=== PATIENT | male | born 1995 | race Caucasian/White ===

== ENCOUNTER 2023-07-13 23:13 | Emergency (ER) | payer SELFPAY ==
[2023-07-13 23:15] VITALS: BP 147/76; PULSE 108; RESP 16; TEMP 36.8; O2SAT 100; BMI 17.1
--- NOTE | 2023-07-13 23:20 | ECG_ITS ---
APPROVED REPORT Exam: Resting ECG HR:106 bpm ECG Measurements Heart Rate 106 AXES NJ 112 P 76 QRSd 98 QRS 86 QT 311 T 67 QTc 373 Conclusion SINUS TACHYCARDIA WITH SHORT NJ INTERVAL ABNORMAL RHYTHM ECG UNCONFIRMED REPORT Electronically signed by : Ruddy Everett MD 07/14/2023 21:25:37
[2023-07-13 23:34] VITALS: BP 94/38; PULSE 54; RESP 17; O2SAT 100
[2023-07-13 23:35] VITALS: BP 86/41; PULSE 52; RESP 17; O2SAT 100
[2023-07-13 23:37] VITALS: BP 97/46; PULSE 52; RESP 17; O2SAT 100
[2023-07-13 23:39] VITALS: BP 110/79; PULSE 94; RESP 17; O2SAT 100
--- NOTE | 2023-07-13 23:39 | ECG_ITS ---
APPROVED REPORT Exam: Resting ECG HR:76 bpm ECG Measurements Heart Rate 76 AXES QRSd 97 QRS 92 QT 363 T 81 QTc 394 Conclusion ATRIAL FIBRILLATION BORDERLINE RIGHT AXIS DEVIATION [QRS AXIS > 90] ABNORMAL RHYTHM ECG UNCONFIRMED REPORT Electronically signed by : Ruddy Everett MD 07/14/2023 21:25:29
--- NOTE | 2023-07-13 23:41 | XR_ITS ---
PROCEDURE INFORMATION: Exam: XR Chest Exam date and time: 07/14/2023 12:05 AM Age: 27 years old Clinical indication: Sternal or substernal pain; Additional info: Chest pain TECHNIQUE: Imaging protocol: Radiologic exam of the chest. Views: 1 view. COMPARISON: No relevant prior studies available. FINDINGS: Lungs: Unremarkable. No consolidation. Pleural spaces: Unremarkable. No pleural effusion. No pneumothorax. Heart/Mediastinum: Unremarkable. No cardiomegaly. Bones/joints: Unremarkable. IMPRESSION: No acute findings.
[2023-07-13 23:43] VITALS: BP 135/81; PULSE 70; RESP 15; O2SAT 100
--- NOTE | 2023-07-13 23:47 | PC.NURSE ---
Patient called out and reported he felt dizzy. Went in to check on patient patient stated he was seeing stars and felt like he was going to pass out. Patient had an episode of bradycardia and hypotension. Called Phillip JOSEPH and MD to BS. Repeat EKG obtained; V/O for LR per MD. Fluids hung on patient; patient placed in Trendelenburg BP improved as well as HR. Naina STEARNS obtained BS which was 117. Will continue to monitor V/S.
[2023-07-13 23:49] LABS: Basophils # 0.1 K/mm3 (0-0.2); Basophils % 0.5 % (0.1-2.0); Eosinophils # 0.2 K/mm3 (0.0-0.4); Hematocrit 45.7 % (42.0-52.0); Hemoglobin 15.9 g/dL (14.1-18.0); Lymphocytes % 32.5 % (10-50); Mean Corpuscular HGB Conc 34.8 g/dL (31.8-35.4); Mean Corpuscular Volume 91.8 fl (80-94); Mean Platelet Volume 7.4 fl (7.4-10.4); Monocytes # 0.6 K/mm3 (0.1-1.0); Monocytes % 4.6 % (1.7-9.3); Neutrophils # 7.5 K/mm3 (1.8-7.8); Neutrophils % 60.4 % (37.0-80.0); Platelet Count 242 K/mm3 (142-424); Red Blood Count 4.98 M/mm3 (4.60-6.20); Red Cell Distribution Width 12.7 % (11.5-17.5); White Blood Count 12.4 K/mm3 (4.8-10.8)
[2023-07-13 23:55] LABS: POC Glucose,Bedside 117 (70-110)
[2023-07-13 23:57] LABS: Chloride 102 mmol/L (98-107); Potassium 3.5 mmoL/L (3.5-5.1); Sodium 138 mmol/L (136-145)
[2023-07-14] VITALS: BP 132/75; PULSE 68; RESP 17; O2SAT 100
[2023-07-14] LABS: Alanine Aminotransferase 22 U/L (12-78); Albumin Level 5.1 g/dl (3.5-5.0); Albumin/Globulin Ratio 1.7 (1.1-1.8); Alkaline Phosphatase 56 U/L (38-126); Anion Gap 13.5 mEq/L (5-15); Aspartate Amino Transferase 38 U/L (17-59); Blood Urea Nitrogen 21 mg/dl (9-20); Calcium 9.1 mg/dl (8.4-10.2); Carbon Dioxide 26 mmol/L (22.0-30.0); Creatinine Clearance Estimated 83 mL/min (50-200); Estimated Glomerular Filt Rate 79 ml/min (>60); GFR (African American) 96 ML/MIN (>60); Glucose 123 mg/dl (74-100); Total Protein,Serum 8.1 g/dl (6.3-8.2)
[2023-07-14 00:01] LABS: Magnesium 1.8 mg/dl (1.6-2.3)
[2023-07-14 00:13] LABS: Troponin I < 0.01 ng/ml (0.00-0.034)
--- NOTE | 2023-07-14 00:22 | PC.NURSE ---
Handed off report to night baker
--- NOTE | 2023-07-14 00:27 | [facility].EDGENADL ---
Discharge Plan Disposition Patient Disposition: Home, Self-Care Referrals Follow up/Referrals: Provider,Referral, MD [Primary Care Provider] - See instructions Activity Restrictions/Add. Instructions Additional Instructions/Restrictions: Recommend initiating care with a primary care doctor. Please return to the emergency department if you develop any new or worsening symptoms or become concerned for your health. Clinical Impressions Clinical Impression: Vaso vagal episode, Chest pain Discharge ED Provider: Juan M Romano Adult HPI General Chief complaint: Chest Pain Stated complaint: dizziness, chest tightness Time Seen by Provider: 07/13/23 23:22 Mode of Arrival: Ambulatory Source of Information: Patient Limitations: No Limitations Description of Symptoms (Recalled from ER Triage Doc. by RN): Presents to ED with c/o midsternal stabbing chest pain with dizziness while laying down. Patient denies cardiac hx. Patient reports smoking marijuana earlier. History of Present Illness HPI narrative: 27-year-old male, previously healthy, presents with episode of chest pain at home. Happened a little prior to arrival. He reports that it was sharp in nature. He had some associated dizziness. He reports that he has felt some palpitations in the past, but without any regularity. No recent fever or illness. He reports intermittent marijuana use, including earlier today. He denies frequent alcohol use, denies any IV drug use. By the time of presentation patient's chest pain was improved. Related Data Allergies Allergy/AdvReac Type Severity Reaction Status Date / Time No Known Allergies Allergy Unverified 05/29/18 11:37 [facility] Disclaimer: The information contained in this section may have been updated after the patient was seen, as this information can be updated by other users. Social History Smoking Status: Current some day smoker alcohol intake: never current occupational status: employed Travel in the last 8 weeks: None ROS Obtained: Yes All systems reviewed & no additional complaints except as documented Physical Exam General General appearance: alert and in no apparent distress Head Head exam: atraumatic and normocephalic Eye Eye exam: Present normal appearance, PERRL and EOMI ENT ENT exam: Present normal oropharynx and normal external ear exam Neck Neck exam: Present normal inspection and full ROM Chest Chest inspection: Present normal inspection and symmetric chest wall rise; Absent tenderness Respiratory Respiratory exam: Present normal lung sounds bilaterally; Absent respiratory distress Cardiovascular Cardiovascular exam: Present regular rate and normal rhythm Abdominal Exam Abdominal exam: Present soft; Absent distention, tenderness or guarding Extremities Exam Extremities exam: Present normal inspection; Absent edema or joint swelling Back Exam Back exam: Present normal inspection; Absent tenderness Neurological Exam Neurological exam: Present alert and oriented X3; Absent motor sensory deficit Psychiatric Psychiatric exam: Present normal affect and normal mood Skin Skin exam: Present warm, dry and normal color Lymphatic Lymphatic Findings: no adenopathy Medical Decision Making Medical Records Medical records reviewed: Yes I reviewed the patient's medical records. Alex Inquiry Pt receiving controlled substance: No Alex was queried for this patient: No Vital Signs: 07/13/23 23:15 07/13/23 23:34 07/13/23 23:35 Temperature 98.2 F Temperature Source Oral Pulse Rate 54 L 52 L Pulse Rate [Right] 108 H Respiratory Rate 16 17 17 Blood Pressure 94/38 L 86/41 L Blood Pressure [Right Arm] 147/76 H Blood Pressure Mean 56 53 Blood Pressure Mean [Right Arm] 99 Blood Pressure Source Blood Pressure Source [Right Arm] Automatic Cuff Blood Pressure Position Blood Pressure Position [Right Arm] Sitting 02 Sat by Pulse Oximetry 100 100 100 Oxygen Deliver
[2023-07-14 00:37] VITALS: BP 124/83; PULSE 57; RESP 12; TEMP 36.7; O2SAT 99
== END 2023-07-14 00:38 | disposition home or self-care (01) ==
PROVIDERS: Emergency Provider Emergency Medicine
DX: R07.9 Chest pain, unspecified (principal); R55 Syncope and collapse; R00.0 Tachycardia, unspecified; F17.210 Nicotine dependence, cigarettes, uncomplicated
CPT/HCPCS: 71045; 80053; 82962; 83735; 84484; 85025; 85378; 93005; 96360; 99284